=== PATIENT | male | born 1950 | race Caucasian/White ===

== ENCOUNTER 2017-01-23 10:22 | Emergency (ER) | payer BC, OTHER ==
[~2017-01-23] VITALS: Ht 182.9 cm; Wt 117.9 kg
[~2017-01-23 10:22] MED LIST: ESCI5TAB PO; FEXO1TAB8 PO
[2017-01-23 10:39] VITALS: BP_SYST 100
[2017-01-23] MEDS ORDERED: NACL 0.9% 1,000 ML IV SCH ×2 (10:49)
--- NOTE | 2017-01-23 10:55 | NUR ---
Patient to ER bed 5 to gown for evaluation. Side rails up. Report given to Kemi WHITE.
[2017-01-23 11:25] LABS: BASOPHILS # (AUTO) 0.1 K/uL (0.0-0.2); BASOPHILS % (AUTO) 0.6 % (0.0-2.0); CALCIUM 8.8 mg/dL (8.4-11.0); CREATININE 1.6 mg/dL (0.55-1.30); EOSINOPHILS # (AUTO) 0.3 K/uL (0.0-0.4); EOSINOPHILS % (AUTO) 2.4 % (0.0-4.0); HEMATOCRIT 41.5 % (36-54); HEMOGLOBIN 14.1 g/dL (14.0-18.0); LYMPHOCYTES # (AUTO) 2.2 K/uL (1.0-5.5); LYMPHOCYTES % (AUTO) 18.9 % (20.5-51.5); MEAN CORPUSCULAR HEMOGLOBIN 31 pg (27-31); MEAN CORPUSCULAR HGB CONC 34 % (32-36); MEAN CORPUSCULAR VOLUME 90 fL (79.0-98.0); MONOCYTES # (AUTO) 0.6 K/uL (0.0-1.0); MONOCYTES % (AUTO) 4.9 % (1.7-9.3); NEUTROPHILS # (AUTO) 8.4 K/uL (1.8-7.7); NEUTROPHILS % (AUTO) 73.2 % (40.0-70.0); PLATELET COUNT (AUTO) 259 K/uL (130-430); POTASSIUM 4.8 mmol/L (3.5-5.1); RED BLOOD CELL COUNT(AUTO) 4.59 MIL/uL (4.2-6.2); RED CELL DISTRIBUTION WIDTH 12.5 % (9.0-15.0); WHITE BLOOD COUNT (AUTO) 11.6 K/uL (4.8-10.8)
[2017-01-23 11:27] LABS: PROTHROMBIN TIME 10.5 SECS (9.5-12.5)
[2017-01-23 11:29] LABS: ALBUMIN 3.6 g/dL (3.4-4.8); TOTAL BILIRUBIN 0.6 mg/dL (0.0-1.0); TOTAL PROTEIN, SERUM 7.1 g/dL (6.4-8.3)
--- NOTE | 2017-01-23 12:38 | NUR ---
# 20 gauge angiocath placed to LEFT HAND. Use of aseptic technique. Opsite placed over site. Blood return noted. Flushed with 10 cc of normal saline. No evidence of infiltration noted. Patient tolerated well.
--- NOTE | 2017-01-23 12:39 | NUR ---
IV SALINE BOLUS STARTED ORDERED.
[2017-01-23] MEDS ORDERED: NACL 0.9% 1,000 ML IV ONE (13:15)
--- NOTE | 2017-01-23 15:40 | NUR ---
SYSTOLIC BLOOD PRESSURE ABOVE 118. PT DENIES DIZZINESS.
[2017-01-23 15:59] LABS: BILIRUBIN,URINE NEGATIVE (NEGATIVE); BLOOD, URINE NEGATIVE (NEGATIVE); CLARITY/URINE CLEAR (CLEAR); COLOR,URINE YELLOW (YELLOW); GLUCOSE,URINE NEGATIVE (NEGATIVE); KETONES,URINE NEGATIVE (NEGATIVE); LEUKOCYTE ESTERASE ,URINE NEGATIVE (NEGATIVE); NITRITE, URINE NEGATIVE (NEGATIVE); PROTEIN URINE NEGATIVE (NEGATIVE); UROBILINOGEN,URINE 0.2 (0.2-1.0)
[2017-01-23 16:11] LABS: BACTERIA,URINE FEW /HPF (None Seen); WBC,URINE 0-3 /HPF (0-3)
[2017-01-23 16:12] LABS: HYALINE CASTS, URINE 0-10 /LPF (None Seen); MUCUS,URINE 3+ /LPF (None Seen); RBC,URINE 0-3 /HPF (0-3)
--- NOTE | 2017-01-23 16:25 | NUR ---
Patient given written and verbal discharge instructions and verbalizes understanding. ER MD DR MEDINA discussed with patient the results and treatment provided. Patient in stable condition. ID arm band removed. IV catheter removed intact and dressing applied, no active bleeding. Patient educated on pain management and to follow up with PMD. Pain Scale 0. Opportunity for questions provided and answered.
[2017-01-23 16:26] VITALS: BP_SYST 118
== END 2017-01-23 16:25 | disposition home or self-care (01) ==
LOC: SED 10:24
DX: I95.9 Hypotension, unspecified (principal); R05 Cough; I10 Essential (primary) hypertension; E78.5 Hyperlipidemia, unspecified; Z88.2 Allergy status to sulfonamides; Z88.0 Allergy status to penicillin; Z79.899 Other long term (current) drug therapy
CPT/HCPCS: 36415; 71010; 80053; 81000; 81003; 83605; 83880; 84484; 85025; 85610; 85730; 87040; 87086; 93005; 96360; 99285; J7030

== ENCOUNTER 2022-06-08 08:39 | Outpatient (CLI) | payer OTHER ==
[~2022-06-08 08:39] MED LIST changes: +AZEL137S7 NS; +DOCU-144 PO; +HYDR-3927 PO; +LIP20 PO; +NEU300 PO; +PARO-41 PO; +PROXL60 PO; +SYN50 PO
== END 2022-06-08 20:09 | disposition home or self-care (01) ==
LOC: SCT 08:39
PROVIDERS: ATTEND Internal Medicine
DX: K76.89 Other specified diseases of liver (principal); K57.30 Diverticulosis of large intestine without perforation or abscess without bleeding; M43.17 Spondylolisthesis, lumbosacral region; I25.10 Atherosclerotic heart disease of native coronary artery without angina pectoris; R79.89 Other specified abnormal findings of blood chemistry; R93.812 Abnormal radiologic findings on diagnostic imaging of left testicle
CPT/HCPCS: 74177; 76376; Q9967